=== PATIENT | male | born 1945 | race Caucasian/White ===

== ENCOUNTER 2016-07-25 05:52 | Day surgery (SDC) | payer MEDICARE, BC ==
[2016-07-21 10:06] LABS: HEMATOCRIT 40.4 % (40.0-51.0)
--- NOTE | ~2016-07-25 | OP ---
Record Of Operation [facility] [address] [place]. [address] NAME: CATY COLLIER : 47 STATUS : REG [facility]#: [id number] AGE: 71 ADM/REG DATE : 07/25/16 MR#: [id number] REPORT SERV DATE: 07/25/16 DICTATED BY: OZ COMBS III DATE: 07/25/16 REPORT STATUS : Draft TRANSCRIBED BY: MODL DATE: 07/25/16 DATE OF PROCEDURE: 07/25/2016 PREOPERATIVE DIAGNOSIS: Bladder calculus. POSTOPERATIVE DIAGNOSIS: Bladder calculus. PROCEDURE: Cystolitholapaxy. SURGEON: Oz Combs M.D. ANESTHESIA: General. SPECIMEN: Stone fragments. BLOOD LOSS: Less than 5 mL. INDICATION: Mr. Collier is a 71-year-old white male, found to have a moderately sized bladder calculus during evaluation of gross hematuria. Consent for cystolitholapaxy is obtained. DESCRIPTION OF PROCEDURE: After consent was obtained, the patient was identified. He was taken to the OR and put to sleep. He was positioned in the low lithotomy position and prepped and draped in the usual fashion. A 22-Honduran cystoscope was then made ready and inserted into the urethra, it was passed along the course of urethra, into the bladder. He had changes in the prostate consistent with a prior TURP. The bladder was entered, it was lightly trabeculated. The stone was visualized and 1000 holmium laser fiber was made ready. The stone was then ablated using the holmium laser. Ultimately, there are handful of small fragments, these were easily flushed out of the bladder, an Ellik was used to evacuate any remaining fragments. There was some bleeding from the bladder neck and the Bugbee was used to cauterize the bleeding points. The bladder was then drained. The scope removed. The patient was awakened and taken to recovery room in stable condition. PH/MODL Oz Combs III, M.D. / [id number] CC: Korin Gray III, M.D.
[~2016-07-25 05:52] MED LIST: ADVIL PO; CENTRUM SILVER PO; DIL2TAB PO; GLUCOV2.5 PO; LEVEMFLXPN SC; MULTIPLE VIT PO; PR25 PO; PRILO PO; PROSCAR5 PO; PYR200 PO; SUDAFED PO; T PO; VITAMIN D31000 UNIT PO; ZESTORETIC PO; ZOCOR40 PO; ZOFRAN4 PO
[2016-07-31 10:54] LABS: STONE COMPOSITION TWO DNR (())
== END 2016-07-25 12:18 | disposition home or self-care (01) ==
LOC: SDC 05:52
PROVIDERS: Urology
PROC: 0TCB8ZZ Extirpation of Matter from Bladder, Via Natural or Artificial Opening Endoscopic (ICD-10-PCS; principal; 2016-07-25 07:45)
DX: N21.0 Calculus in bladder (principal); Z88.2 Allergy status to sulfonamides; Z88.8 Allergy status to other drugs, medicaments and biological substances; Z87.442 Personal history of urinary calculi; Z98.890 Other specified postprocedural states; Z79.899 Other long term (current) drug therapy
CPT/HCPCS: 82365; 85014; 85018; 93005; A9270-GY; J0690; J2250; J2405; J3010